=== PATIENT | female | born 1950 | race Caucasian/White ===

== ENCOUNTER 2019-08-19 12:37 | Emergency (ER) | payer OTHER | END 2019-08-19 12:54 | disposition left against medical advice (07) | LOC: EDH 12:37 | DX: R21 Rash and other nonspecific skin eruption (principal); I10 Essential (primary) hypertension; E78.00 Pure hypercholesterolemia, unspecified; Z53.21 Procedure and treatment not carried out due to patient leaving prior to being seen by health care provider; Z98.51 Tubal ligation status; Z98.890 Other specified postprocedural states | CPT/HCPCS: 93005 ==